=== PATIENT | female | born 1970 | race African-American/Black ===

== ENCOUNTER 2016-03-17 15:29 | Outpatient (CLI) | payer OTHER ==
--- NOTE | 2016-03-17 16:28 | RAD ---
SINGLE STANDING WEIGHTBEARING VIEW OF THE RIGHT AND LEFT KNEES: INDICATION: Knee pain. FINDINGS: There is mild degenerative arthrosis of the right and left knees predominantly effacing the medial f emorotibial joint compartment. No acute fracture or subluxation is evident. IMPRESSION: 1. No acute osseous abnormality. 2. Mild osteoarthrosis of the right and left knee. POS: [facility]
== END 2016-03-17 15:30 | disposition home or self-care (01) ==
LOC: MADLAB 15:29
PROVIDERS: ATTEND Physician Assistant
DX: M25.561 Pain in right knee (principal)
CPT/HCPCS: 73565

== ENCOUNTER 2016-03-28 18:19 | Outpatient (CLI) | payer OTHER ==
--- NOTE | 2016-03-28 20:32 | CT ---
EXAM: CERVICAL SPINE CT WITHOUT CONTRAST 03/28/16 HISTORY: Neck muscle spasm. Pain. COMPARISON: None. TECHNIQUE: A cervical spine CT is performed without intravenous or intrathecal contrast administration. Sagitta l and coronal reformatted images are submitted for interpretation. FINDINGS: Mild heterogeneous thyroid gland. Visualized soft tissue neck structures are otherwise unremarkable. No prevertebral soft tissue swelling. Upper mediastinum and lung apices are unremarkable. Sagittal reformatted images demonstrate straightening of the normal cervical lordosis which may be d ue to muscle spasm or patient position. Current study is not tailored to assess for ligamentous inju ry. There does not appear to be splaying with the intraspinous distances. Vertebral body heights are maintained. There are no fractures. Predental space is normal. There is mild degenerative disc dise ase at C6-C7 with loss of disc space height and osteophyte formation. There are varying degrees of c entral canal stenosis and foraminal narrowing. High grade central canal stenosis and high grade fora tiffanie narrowing is not appreciated. Evaluation is limited by technique. Coronal reformatted images demonstrate appropriate alignment of the lateral masses of C1 and C2 as w ell as the intra-articular facets. IMPRESSION: 1. Straightening of the normal cervical lordosis likely due to patient position or muscle spasm . 2. No high grade central canal stenosis or high grade foraminal narrowing. Limited evaluation b y technique. There is mild degenerative disc disease at C6-C7. Better interrogation with nonemergent cervical spine MRI. 3. Heterogeneous thyroid gland. Nonemergent thyroid ultrasound. POS: [facility]
== END 2016-03-28 18:20 | disposition home or self-care (01) ==
LOC: MADRAD 18:19
PROVIDERS: ATTEND Physician Assistant
DX: M62.838 Other muscle spasm (principal); M50.322 Other cervical disc degeneration at C5-C6 level
CPT/HCPCS: 72125

== ENCOUNTER 2016-10-26 11:30 | Outpatient (CLI) | payer OTHER ==
--- NOTE | 2016-10-26 13:12 | ULT ---
THYROID ULTRASOUND: INDICATION: Bilateral swelling within the thyroid gland. COMPARISON: None. FINDINGS: Right thyroid lobe measures 4.4 x 1.9 x 1.3 cm. The left thyroid lobe measures 3.9 x 1.6 x 1.1 cm. The thyroid isthmus measures 0.4 cm. There is a heterogeneous thyroid nodule seen within the right thyroid gland measuring 9 x 6 mm. There is a hypoechoic thyroid nodule seen within the left mid thyroid gland measuring 4.2 x 2.5 mm. There is a solid thyroid nodule that is slightly heterogeneous in appearance seen within the left m id thyroid gland measuring 1.3 x 1 cm. IMPRESSION: Multinodular goiter. Recommend a followup thyroid ultrasound in 1 year to document stability. POS: [facility]
== END 2016-10-26 11:31 | disposition home or self-care (01) ==
LOC: MADULT 11:30
PROVIDERS: ATTEND Physician Assistant
DX: R93.7 Abnormal findings on diagnostic imaging of other parts of musculoskeletal system (principal); E04.2 Nontoxic multinodular goiter
CPT/HCPCS: 76536

== ENCOUNTER 2020-06-03 20:38 | Emergency (ER) | payer OTHER ==
[~2020-06-03 20:38] MED LIST: Iopamidol 370 76% 100 ML VIAL ONE
[2020-06-03] MEDS ORDERED: Fentanyl 100 MCG/2 ML VIAL ONE (21:07)
[2020-06-03 21:34] LABS: BHCG - Serum Negative (NEGATIVE); Pregs Control Background? CLEAR/WHITE (CLR/WHITE); Pregs Control Bar Appear? YES (CONTROL BAR)
[2020-06-03 21:40] LABS: #Basophils 0.1 thou/uL (0.0-0.2); #Eosinphils 0.1 thou/uL (0.0-0.7); #Lymphocytes 2.3 thou/uL (1.20-3.40); #Monocytes 0.4 thou/uL (0.11-0.59); #Neutrophils 3.6 thou/uL (1.40-6.50); %Eosinophils 1.4 % (0.0-10.0); %Lymphocytes 35.5 % (21.0-51.0); %Monocytes 6.5 % (0.0-10.0); %Neutrophils 55.6 % (42.0-75.0); Hemoglobin 11.5 g/dL (12.0-16.0); Hypochromia SLIGHT = 6-15 cells (100X) (0-5/hpf); Large Platelets SLIGHT; MDiff Complete? YES; Mean Corpuscular HGB CONC 29.4 g/dL (32.0-36.0); Mean Corpuscular Volume 71.3 fL (78.0-98.0); Mean Platelet Volume 7.6 fL (7.4-10.4); Microcytosis SLIGHT = 6-15 cells (100X) (0-5/hpf); Platelet Count 318 thou/uL (130-400); Platelet Morphology Comment Appears Adequate; RBC Distribution Width 13.4 % (11.5-14.5); Red Blood Cell (RBC) Count 5.47 mill/uL (4.20-5.40); White Blood Cell (WBC) Count 6.5 thou/uL (4.8-10.8)
[2020-06-03 21:42] LABS: Anion Gap 13 mmol/L (10-20); BUN (Urea Nitrogen) 11 mg/dL (7.0-18.7); Calc. Creatinine Clearance 0 mL/min (70-130); Calcium 8.7 mg/dL (7.8-10.44); Carbon Dioxide 27 mmol/L (22-29); Chloride 105 mmol/L (98-107); Glucose 105 mg/dL (70-105); Potassium 3.4 mmol/L (3.5-5.1); Sodium 142 mmol/L (136-145)
[2020-06-03] MEDS ORDERED: Ondansetron PF 4 MG/2 ML Vial ONE (21:46)
== END 2020-06-03 22:46 | disposition home or self-care (01) ==
LOC: MADERS 20:38
DX: R10.9 Unspecified abdominal pain (principal); S09.90XA Unspecified injury of head, initial encounter; M54.2 Cervicalgia; I10 Essential (primary) hypertension; D57.00 Hb-SS disease with crisis, unspecified; D64.9 Anemia, unspecified; Z79.899 Other long term (current) drug therapy; V89.2XXA Person injured in unspecified motor-vehicle accident, traffic, initial encounter
CPT/HCPCS: 70450; 71045; 74177; 80048; 84703; 85025; 96374; 96375; J2405; J3010; Q9967

== ENCOUNTER 2022-08-09 09:27 | Emergency (ER) | payer OTHER ==
[2022-08-09] MEDS ORDERED: Loratadine 10 MG TAB ONE (10:10)
== END 2022-08-09 10:32 | disposition home or self-care (01) ==
LOC: MADERS 09:27
DX: S00.262A Insect bite (nonvenomous) of left eyelid and periocular area, initial encounter (principal); S40.861A Insect bite (nonvenomous) of right upper arm, initial encounter; I10 Essential (primary) hypertension; E66.01 Morbid (severe) obesity due to excess calories; D64.9 Anemia, unspecified; W57.XXXA Bitten or stung by nonvenomous insect and other nonvenomous arthropods, initial encounter; Z79.899 Other long term (current) drug therapy
CPT/HCPCS: 99283

== ENCOUNTER 2022-08-12 09:56 | Emergency (ER) | payer OTHER ==
[2022-08-12] MEDS ORDERED: Tetracaine 0.5% PF 4 ML BOT ONE (10:22)
[2022-08-12] MEDS ORDERED: Fluorescein Opthalmic Strip ONE (10:22)
== END 2022-08-12 10:44 | disposition home or self-care (01) ==
LOC: MADERS 09:56
DX: B02.9 Zoster without complications (principal); I10 Essential (primary) hypertension; Z79.899 Other long term (current) drug therapy
CPT/HCPCS: 99283